=== PATIENT | male | born 1980 | race Caucasian/White ===

== ENCOUNTER 2023-08-04 19:31 | Emergency (ER) | payer SELFPAY ==
[~2023-08-04] VITALS: Ht 167.6 cm; Wt 92.0 kg
[2023-08-04 19:45] VITALS: BP 100/56; PULSE 92; RESP 16; TEMP 98.4; O2SAT 98
== END 2023-08-04 20:05 | disposition left against medical advice (07) ==
LOC: ER 19:31
DX: F10.129 Alcohol abuse with intoxication, unspecified (principal); F19.90 Other psychoactive substance use, unspecified, uncomplicated; Y90.9 Presence of alcohol in blood, level not specified
CPT/HCPCS: 99283